=== PATIENT | female | born 1950 | race Caucasian/White ===

== ENCOUNTER 2024-09-13 09:00 | Inpatient (IN) | payer MEDICARE, OTHER ==
[2024-09-16 08:28] VITALS: BMI 37.9
[2024-09-17] MEDS ORDERED: EPINEPHrine 1 MG/ML VIAL ONE (06:41)
[2024-09-17] MEDS ORDERED: Bupivacaine 0.25% HCL 30 ML VIAL ONE (06:41)
[2024-09-17] MEDS ORDERED: Propofol 500 MG/50 ML VIAL ONE (06:54)
[2024-09-17] MEDS ORDERED: Heparin 5,000 UNITS/ML VIAL ONE (06:58)
[2024-09-17] MEDS ORDERED: PROPOFOL 20 ML ONE ×2 (07:00→08:49)
[2024-09-17] MEDS ORDERED: fentaNYL PF 100 MCG/2 ML SYRINGE ONE (07:00)
[2024-09-17] MEDS ORDERED: Rocuronium Bromide 10 MG/ML (10ML VIAL) ONE (07:03)
[2024-09-17] MEDS ORDERED: Lidocaine 1% PF 5 ML VIAL ONE (07:03)
[2024-09-17] MEDS ORDERED: Famotidine/PF 20 mg/2ml Vial ONE (07:19)
[2024-09-17] MEDS ORDERED: fentaNYL 50 mcg/mL 1 mL Vial ONE ×2 (07:19→10:35)
[2024-09-17] MEDS ORDERED: LevoFLOXacin D5W 500 mg (100 mL) BAG ONE (07:29)
[2024-09-17] MEDS ORDERED: Dexamethasone 20 MG/5 ML VIAL ONE (07:56)
[2024-09-17] MEDS ORDERED: diphenhydrAMINE 50 MG/ML VIAL ONE (07:56)
[2024-09-17] MEDS ORDERED: ePHEDrine Sulfate 50 MG/10 ML VIAL ONE (07:56)
[2024-09-17] MEDS ORDERED: Promethazine HCl 25 MG/ML VIAL IM PRN ×2 (08:32→10:16)
[2024-09-17] MEDS ORDERED: Ondansetron HCl/PF 4 MG/2 ML Vial IVP PRN (08:32)
[2024-09-17] MEDS ORDERED: SUGAMMADEX SODIUM 200 MG/2 ML VIAL ONE (09:18)
[2024-09-17] MEDS ORDERED: Ketorolac Tromethamine 30 MG (1 mL) VIAL ONE (09:20)
[2024-09-17] MEDS ORDERED: Non-Formulary Item 1 EACH (Lidocaine [Lidocaine 5% Patch] 1 EACH Adh..Patch) TOP PRN (10:16)
[2024-09-17] MEDS ORDERED: Fentanyl 100 MCG/2 ML VIAL SLOW IVP PRN (10:16)
[2024-09-17] MEDS ORDERED: Glucagon 1 MG/ML KIT IM PRN (10:16)
[2024-09-17] MEDS ORDERED: Dextrose 5% in Water 1,000 ML IV PRN (10:16)
[2024-09-17] MEDS ORDERED: Ketorolac Tromethamine 30 MG (1 mL) VIAL IVP PRN (10:16)
[2024-09-17] MEDS ORDERED: Dextrose 50% Abboject 50 ML SYRINGE SLOW IVP PRN (10:16)
[2024-09-17] MEDS ORDERED: Ipratropium/Albuterol 3 ML NEB NEB PRN (10:16)
[2024-09-17] MEDS ORDERED: traMADol HCl 50 MG TAB PO PRN (10:16)
[2024-09-17] MEDS ORDERED: oxyCODONE 5 MG TAB PO PRN (10:16)
[2024-09-17] MEDS ORDERED: Ondansetron PF 4 MG/2 ML Vial IVP PRN (10:16)
[2024-09-17] MEDS ORDERED: diphenhydrAMINE 50 MG/ML VIAL IVP PRN (10:16)
[2024-09-17] MEDS ORDERED: hydrALAZINE 20 MG/ML VIAL SLOW IVP PRN (10:16)
[2024-09-17] MEDS ORDERED: D5 1/2 NS w/20 mEq KCL 1,000 ML ONE (10:21)
[2024-09-17] MEDS ORDERED: fentaNYL 50 mcg/mL 1 mL Vial SLOW IVP PRN (10:34)
[2024-09-17] MEDS ORDERED: Lidocaine 4% Patch TP PRN (10:39)
[2024-09-17] MEDS: Acetaminophen 650 MG/20.3 ML UDCUP PO SCH (17:55)
[2024-09-17] MEDS: D5 1/2 NS w/20 mEq KCL 1,000 ML IV SCH (17:55)
[2024-09-17] MEDS ORDERED: TOPIRAMATE 100 MG PO SCH (21:00)
[2024-09-17] MEDS ORDERED: CANDESARTAN CILEXETIL 4 MG PO SCH (21:00)
[2024-09-17] MEDS: traZODone HCl 150 MG TAB PO SCH (22:29)
[2024-09-17] MEDS: Losartan 25 MG TAB PO SCH (22:29)
[2024-09-17] MEDS: hydrOXYzine 10 MG TAB PO SCH (22:29)
[2024-09-17] MEDS: Topiramate 100 MG TAB PO SCH (22:29)
[2024-09-17] MEDS: DULoxetine 30 MG CAP PO SCH (22:29)
[2024-09-17] MEDS: Transdermal Patch Removal TOP SCH (22:30)
[2024-09-18 05:26] LABS: #Basophils Less than 0.03 10x3/uL (0.0-0.2); #Eosinophils Less than 0.03 10x3/uL (0.0-0.7); %Basophils 0.1 % (0.0-1.0); %Eosinophils 0.1 % (0.0-10.0); %Lymphocytes 21.7 % (21.0-51.0); %Monocytes 8.4 % (0.0-10.0); %Neutrophils 69.5 % (42.0-75.0); Hematocrit 44.2 % (36.0-47.0); Hemoglobin 14.4 g/dL (12.0-16.0); Mean Corpuscular HGB CONC 32.6 g/dL (32.0-36.0); Mean Corpuscular Hemoglobin 29.2 pg (27.0-31.0); Mean Corpuscular Volume 89.7 fL (78.0-98.0); Mean Platelet Volume 10.4 fL (7.4-10.4); Platelet Count 289 10x3/uL (130-400); RBC Distribution Width 14.5 % (11.5-14.5); Red Blood Cell (RBC) Count 4.93 mill/uL (4.20-5.40)
[2024-09-18 06:49] LABS: Anion Gap 15 mmol/L (10-20); BUN (Urea Nitrogen) 6 mg/dL (9.8-20.1); Calc. Creatinine Clearance 108 mL/min (70-130); Calcium 9.5 mg/dL (7.8-10.44); Carbon Dioxide 18 mmol/L (23-31); Chloride 110 mmol/L (98-107); Estimated GFR 88; Glucose 100 mg/dL (83-110); Potassium 4.4 mmol/L (3.5-5.1); Sodium 139 mmol/L (136-145)
[2024-09-18 08:41] VITALS: TEMP 98.4
[2024-09-18] MEDS ORDERED: Non-Formulary Item 1 EACH (Rimegepant Sulfate [Nurtec Odt] 75 MG Tab.Rapdis) PO SCH (09:00)
[2024-09-18] MEDS ORDERED: Rimegepant Sulfate [Nurtec Odt] 75 MG Tab.Rapdis PO SCH (09:00)
[2024-09-18] MEDS: Enoxaparin 40 MG (0.4 mL) SYRINGE SC SCH (09:45)
[2024-09-18] MEDS: Pantoprazole 40 MG VIAL IVP SCH (09:45)
[2024-09-18 11:43] VITALS: BP 154/90
== END 2024-09-18 13:07 | disposition home or self-care (01) | DRG 621 ==
LOC: SURG A 09-17 06:07 → SURG B 09-17 12:33
PROVIDERS: ADMIT Surgery; ATTEND Surgery
PROC: 0D164ZA Bypass Stomach to Jejunum, Percutaneous Endoscopic Approach (ICD-10-PCS; principal; 2024-09-17)
PROC: 8E0W4CZ Robotic Assisted Procedure of Trunk Region, Percutaneous Endoscopic Approach (ICD-10-PCS; 2024-09-17)
DX: E66.01 Morbid (severe) obesity due to excess calories (principal); F41.9 Anxiety disorder, unspecified; G89.29 Other chronic pain; E78.00 Pure hypercholesterolemia, unspecified; M19.90 Unspecified osteoarthritis, unspecified site; F32.A Depression, unspecified; G43.909 Migraine, unspecified, not intractable, without status migrainosus; I10 Essential (primary) hypertension; K21.9 Gastro-esophageal reflux disease without esophagitis; G47.33 Obstructive sleep apnea (adult) (pediatric); Z68.37 Body mass index [BMI] 37.0-37.9, adult; Z79.899 Other long term (current) drug therapy; Z90.49 Acquired absence of other specified parts of digestive tract; Z90.710 Acquired absence of both cervix and uterus; Z98.51 Tubal ligation status; Z86.73 Personal history of transient ischemic attack (TIA), and cerebral infarction without residual deficits; Z99.89 Dependence on other enabling machines and devices; Z88.0 Allergy status to penicillin
CPT/HCPCS: 36415; 80048; 80053; 83036; 85025; 93005; 93010; 94760; J0171; J0665; J1100; J1200; J1644; J1650; J1885; J1956; J2470; J2704; J3010; J3480; J3490

== ENCOUNTER 2025-11-06 14:48 | Outpatient (CLI) | payer MEDICARE, OTHER | END 2025-11-06 14:49 | disposition home or self-care (01) | LOC: BICMAMMO 14:48 | PROVIDERS: ATTEND Family Medicine | DX: Z12.31 Encounter for screening mammogram for malignant neoplasm of breast (principal); Z91.89 Other specified personal risk factors, not elsewhere classified | CPT/HCPCS: 77063; 77067 ==